=== PATIENT | female | born 1990 | race Caucasian/White ===

== ENCOUNTER 2017-09-22 15:05 | Inpatient (IN) | payer BC ==
[2017-09-22] MEDS ORDERED: Ondansetron 4 MG/2 ML SDV IVPUSH PRN (15:13)
[2017-09-22] MEDS ORDERED: Nalbuphine 20 MG/ML 1 ML Syringe IVPUSH PRN (15:13)
[2017-09-22] MEDS ORDERED: Sodium Chloride 0.9% 10 ML Syringe FLUSH PRN (15:13)
[2017-09-22] MEDS ORDERED: Oxytocin/Lactated Ringers 10 UNIT/1,000 ML BAG IV SCH (15:15)
--- NOTE | 2017-09-22 15:15 | PCM.LDHP ---
L&D History of Present Illness - General Date of Service: 09/22/17 Admit Problem/Dx: Patient Status Order with Admit Dx/Problem 09/22/17 15:13 Patient Status [ADT] Routine Admission Diagnosis/Problem Admission Diagnosis/Problem Premature rupture of membranes Source of Information: Patient History Limitations: Reports: No Limitations - History of Present Illness Introduction:: Patient is a 27 y/o at 39 6/7 wks who presents to L&D for management of PROM. States that around 0800 this AM had the start of fluid leaking. No real contractions. No other concerns. 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: : 1 Para: 0 LMP (Approximate): - Past Surgical History HEENT Surgical History: Reports: Oral Surgery ([place] tooth extraction) Social & Family History - Tobacco Use Smoking Status *Q: Never Smoker - Alcohol Use Alcohol Use History: No - Recreational Drug Use Recreational Drug Use: No H&P Review of Systems - Review of Systems: Review Of Systems: See Below General: Reports: No Symptoms Pulmonary: Reports: No Symptoms Cardiovascular: Reports: No Symptoms Gastrointestinal: Reports: No Symptoms Genitourinary: Reports: No Symptoms Musculoskeletal: Reports: No Symptoms Neurological: Reports: No Symptoms L&D Exam - Exam Exam: See Below - OB Specific Contraction Intensity: Irritability Movement: Active Heart Tones: Present Heart Tones per Min: 140 Heart Rate (FHR) Variability: Moderate (6-25 bmp) Presentation: Vertex - Exam General: Alert, Oriented, Cooperative Lungs: Clear to Auscultation, Normal Respiratory Effort Cardiovascular: Regular Rate, Regular Rhythm GI/Abdominal Exam: Soft, Non-Tender Genitourinary: Normal external exam Back Exam: Normal Inspection Extremities: Normal Inspection Skin: Warm, Dry, Intact - Patient Data Result Diagrams: 09/22/17 15:35 - Problem List (1) 39 weeks gestation of SNOMED Code(s): 36341784 ICD Code: Z3A.39 - 39 WEEKS GESTATION OF Status: Acute Current Visit: Yes (2) GBS (group B Streptococcus carrier), +RV culture, currently SNOMED Code(s): 9571777747512, 707970504, 5325950416132 ICD Code: O99.820 - STREPTOCOCCUS B CARRIER STATE COMPLICATING Status: Acute Current Visit: Yes (3) Premature rupture of membranes SNOMED Code(s): 69648964 ICD Code: O42.90 - NARCISA ROM, 7TH0 BETW RUPT & ONST LABR, UNSP WEEKS OF GEST Status: Acute Current Visit: Yes Qualifiers: PROM onset of labor timing: unspecified duration between rupture of membranes and onset of labor PROM gestational age: full term Qualified Code( s): O42.92 - Full-term premature rupture of membranes, unspecified as to length of time between rupture and onset of labor Problem List Initiated/Reviewed/Updated: Yes Orders Last 24hrs: Active Orders 24 hr Category Date Time Status Patient Status [ADT] Routine ADT 09/22/17 15:13 Ordered Activity as Tolerated [RC] PFP Care 09/22/17 15:13 Ordered Communication Order [RC] ASDIRECTED Care 09/22/17 15:13 Ordered Heart Tones [RC] ASDIRECTED Care 09/22/17 15:13 Ordered Non Stress Test [RC] PER UNIT ROUTINE Care 09/22/17 15:13 Ordered Notify Provider [RC] PFP Care 09/22/17 15:13 Ordered Notify Provider [RC] PRN Care 09/22/17 15:13 Ordered Peripheral IV Care [RC] . DIRECTED Care 09/22/17 15:13 Ordered Vital Signs [RC] PER UNIT ROUTINE Care 09/22/17 15:13 Ordered Regular Diet [DIET] Diet 09/22/17 Lunch Ordered CBC W/O DIFF,HEMOGRAM [HEME] Routine Lab 09/22/17 15:13 Ordered RAPID PLASMA REAGIN,RPR [CHEM] Routine Lab 09/22/17 15:13 Ordered TYPE AND SCREEN [BBK] Routine Lab 09/22/17 15:13 Ordered Ampicillin 1 gm Med 09/22/17 15:15 Ordered Sodium Chloride 0.9% [Normal Saline] 100 ml IV Q4H Ampicillin 2 gm Med 09/22/17 15:13 Ordered Sodium Chloride 0.9% [Normal Saline] 100 ml IV ONETIME Lactated Ringers [Ringers, Lactated] 1,000 ml Med 09/22/17 15:15 Ordered IV ASDIRECTED Nalbuphine [Nubain] Med 09/22/17 15:13 Ordered 10 mg IVPUSH Q2H PRN Ondansetron [Zofran] Med 09/22/17 15:13 Ordered 4 mg IVPUSH Q4H PRN Oxytocin/Lactated Ringers [Pitocin in LR 10 Units/1,000 Med 09/22/17 15:15 Ordered ML] 10 unit in 1,000 ml IV .CONTINUOUS Oxytocin/Lactated Ringers [Pitocin in LR 10 Units/1,000 Med 09/22/17 15:15 Ordered ML] 10 unit in 1,000 ml IV TITRATE Sodium Chloride 0.9% [Saline Flush] Med 09/22/17 15:13 Ordered 10 ml FLUSH ASDIRECTED PRN Electronic Heart Tones Ext w TOCO [WOMSER] Oth 09/22/17 15:13 Ordered Routine Electronic Heart Tones Internal [WOMSER] Per Unit Ot 09/22/17 15:13 Ordered Routine Peripheral IV Insertion Adult [OM.PC] Routine Oth 09/22/17 15:13 Ordered Resuscitation Status Routine Resus Stat 09/22/17 15:13 Ordered Medication Orders Ampicillin Sodium 2 gm/ Sodium (Chloride) 100 mls @ 200 mls/hr IV ONETIME ONE Stop: 09/22/17 15:42 Ampicillin Sodium 1 gm/ Sodium (Chloride) 100 mls @ 200 mls/hr IV Q4H SOLOMON Lactated Ringer's (Ringers, Lactated) 1,000 mls @ 100 mls/hr IV ASDIRECTED SOLOMON Oxytocin/Lactated Ringer's (Pitocin In Lr 10 Units/1,000 Ml) 10 unit in 1,000 mls @ 500 mls/hr IV .CONTINUOUS SOLOMON Nalbuphine HCl (Nubain) 10 mg IVPUSH Q2H PRN PRN Reason: pain Ondansetron HCl (Zofran) 4 mg IVPUSH Q4H PRN PRN Reason: Nausea/Vomiting Sodium Chloride (Saline Flush) 10 ml FLUSH ASDIRECTED PRN PRN Reason: Keep Vein Open Assessment/Plan Comment:: 27 y/o at 39 6/7 wks who presents with PROM * CBC, T&S, RPR * GBS positive, Ampicillin started for antibiotic prophylaxis * Pitocin to be started for augmentation as ruptured ~6 hours with no contractions * Pain management pre patient preference * Anticipate
[2017-09-22] MEDS ORDERED: Ampicillin 2 GM in Sodium Chloride 0.9% 100 ML IV ONE (15:30)
[2017-09-22] MEDS: Lactated Ringers 1,000 ML IV SCH ×3 (16:01→23:40)
[2017-09-22] MEDS: Oxytocin/Lactated Ringers 10 UNIT/1,000 ML BAG IV SCH (16:01)
[2017-09-22] MEDS: Ampicillin 1 GM in Sodium Chloride 0.9% 100 ML IV SCH ×2 (19:56→23:41)
[2017-09-22] MEDS ORDERED: fentaNYL 100 MCG/2 ML SDV ONE (22:22)
[2017-09-22] MEDS ORDERED: ePHEDrine 50 MG/ML SDV IVPUSH PRN (22:24)
[2017-09-22] MEDS ORDERED: fentaNYL 100 MCG/2 ML SDV EPIDUR PRN (22:24)
[2017-09-22] MEDS: Bupivacaine/fentaNYL/NS 100 ML Bag EPIDUR SCH (22:52)
--- NOTE | 2017-09-22 23:01 | PCM.PREANE ---
Preanesthetic Assessment - Anesthesia/Transfusion/Family Hx Anesthesia History: Prior Anesthesia Without Reaction Family History of Anesthesia Reaction: No Transfusion History: No Prior Transfusion(s) - Review of Systems General: No Symptoms Pulmonary: No Symptoms Cardiovascular: No Symptoms Gastrointestinal: No Symptoms Neurological: No Symptoms Other: Reports: None - Physical Assessment Pulse: 94 O2 Sat by Pulse Oximetry: 100 Respiratory Rate: 18 Blood Pressure: 140/85 Temperature: 36.3 C Vital Signs: Last Vital Signs Temp 36.4 C 09/22/17 15:13 Pulse 94 09/22/17 15:13 Resp 18 09/22/17 15:13 BP 140/85 09/22/17 15:13 Pulse Ox 100 09/22/17 15:13 Height: 1.65 m Weight: 76.204 kg ASA Class: 2 Mental Status: Alert & Oriented x3 Airway Class: Mallampati = 1 Dentition: Reports: Normal Dentition Thyro-Mental Finger Breadths: 3 Mouth Opening Finger Breadths: 3 ROM/Head Extension: Full Lungs: Clear to Auscultation, Normal Respiratory Effort Cardiovascular: Regular Rate, Regular Rhythm - Lab Values: Laboratory Last Values WBC 10.40 K/mm3 (3.98-10.04) H 09/22/17 15:35 RBC 4.27 M/mm3 (3.98-5.22) 09/22/17 15:35 Hgb 12.2 gm/L (11.2-15.7) 09/22/17 15:35 Hct 36.1 % (34.1-44.9) 09/22/17 15:35 MCV 84.5 fl (79.4-94.8) 09/22/17 15:35 MCH 28.6 pg (25.6-32.2) 09/22/17 15:35 MCHC 33.8 g/dl (32.2-35.5) 09/22/17 15:35 RDW Std Deviation 40.6 fL (36.4-46.3) 09/22/17 15:35 Plt Count 276 K/mm3 (182-369) 09/22/17 15:35 MPV 9.0 fl (9.4-12.3) L 09/22/17 15:35 Blood Type B POSITIVE 09/22/17 15:35 Gel Antibody Screen Negative 09/22/17 15:35 - Allergies Allergies/Adverse Reactions: Allergies Allergy/AdvReac Type Severity Reaction Status Date / Time No Known Allergies Allergy Verified 09/22/17 17:35 - Anesthesia Plan Pre-Op Medication Ordered: None - Acknowledgements Anesthesia Type Planned: Epidural Pt an Appropriate Candidate for the Planned Anesthesia: Yes Alternatives and Risks of Anesthesia Discussed w Pt/Guardian: Yes Pt/Guardian Understands and Agrees with Anesthesia Plan: Yes PreAnesthesia Questionnaire HEENT History: Reports: Other (See Below) Other HEENT History: Wears contact lenses Gastrointestinal History: Reports: GERD 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 OB/BYN History: Infertility, IVF - Past Surgical History HEENT Surgical History: Reports: Oral Surgery ([place] tooth extraction) - SUBSTANCE USE Smoking Status *Q: Never Smoker Recreational Drug Use History: No - HOME MEDS Home Medications: Home Meds Pnv No.122/Iron/Folic Acid [ Multi Tablet] 1 each PO DAILY 09/22/17 [ History] - CURRENT (IN HOUSE) MEDS Current Meds: Current Medications Ephedrine Sulfate (Ephedrine Sulfate) 5 mg IVPUSH ASDIRECTED PRN PRN Reason: HYPOTENTSION Fentanyl (Sublimaze) 100 mcg EPIDUR Q3H PRN PRN Reason: Pain Last Admin: 09/22/17 22:51 Dose: 100 mcg Fentanyl/Bupivacaine HCl (Fentanyl/Bupivacaine/Ns 2 Mcg-0.125% 100 Ml) 100 ml EPIDUR ASDIRECTED SOLOMON Last Admin: 09/22/17 22:52 Dose: 100 ml Ampicillin Sodium 1 gm/ Sodium (Chloride) 100 mls @ 200 mls/hr IV Q4H SOLOMON Last Admin: 09/22/17 19:56 Dose: 200 mls/hr Lactated Ringer's (Ringers, Lactated) 1,000 mls @ 100 mls/hr IV ASDIRECTED SOLOMON Last Admin: 09/22/17 16:01 Dose: 40 mls/hr Oxytocin/Lactated Ringer's (Pitocin In Lr 10 Units/1,000 Ml) 10 unit in 1,000 mls @ 500 mls/hr IV .CONTINUOUS SOLOMON Oxytocin/Lactated Ringer's (Pitocin In Lr 10 Units/1,000 Ml) 10 unit in 1,000 mls @ 12 mls/hr IV TITRATE SOLOMON; Protocol Last Titration: 09/22/17 18:35 Dose: 12 munits/min, 72 mls/hr Nalbuphine HCl (Nubain) 10 mg IVPUSH Q2H PRN PRN Reason: pain Ondansetron HCl (Zofran) 4 mg IVPUSH Q4H PRN PRN Reason: Nausea/Vomiting Sodium Chloride (Saline Flush) 10 ml FLUSH ASDIRECTED PRN PRN Reason: Keep Vein Open Discontinued Medications Fentanyl (Sublimaze) Confirm Administered Dose 100 mcg .ROUTE .STK-MED ONE Stop: 09/22/17 22:23 Ampicillin Sodium 2 gm/ Sodium (Chloride) 100 mls @ 200 mls/hr IV ONETIME ONE Stop: 09/22/17 15:59 Last Admin: 09/22/17 16:01 Dose: 200 mls/hr
[2017-09-23] MEDS ORDERED: Bupivacaine 0.25% 10 ML SDV ONE (01:00)
[2017-09-23] MEDS: Ampicillin 1 GM in Sodium Chloride 0.9% 100 ML IV SCH ×2 (03:51→07:53)
[2017-09-23] MEDS: Oxytocin/Lactated Ringers 10 UNIT/1,000 ML BAG IV SCH (06:35)
[2017-09-23] MEDS: Bupivacaine/fentaNYL/NS 100 ML Bag EPIDUR SCH (07:17)
--- NOTE | 2017-09-23 10:02 | PCM.PNLD ---
Labor Progress Note - VS & Meds Vital Signs: Last Vital Signs Temp 36.3 C 09/22/17 23:00 Pulse 94 09/22/17 23:00 Resp 18 09/22/17 23:00 BP 140/85 09/22/17 23:00 Pulse Ox 100 09/22/17 23:00 Active Medications: Current Medications Ephedrine Sulfate (Ephedrine Sulfate) 5 mg IVPUSH ASDIRECTED PRN PRN Reason: HYPOTENTSION Fentanyl (Sublimaze) 100 mcg EPIDUR Q3H PRN PRN Reason: Pain Last Admin: 09/22/17 22:51 Dose: 100 mcg Fentanyl/Bupivacaine HCl (Fentanyl/Bupivacaine/Ns 2 Mcg-0.125% 100 Ml) 100 ml EPIDUR ASDIRECTED SOLOMON Last Admin: 09/23/17 07:17 Dose: 100 ml Ampicillin Sodium 1 gm/ Sodium (Chloride) 100 mls @ 200 mls/hr IV Q4H SOLOMON Last Admin: 09/23/17 07:53 Dose: 200 mls/hr Lactated Ringer's (Ringers, Lactated) 1,000 mls @ 100 mls/hr IV ASDIRECTED SOLOMON Last Admin: 09/22/17 23:40 Dose: 40 mls/hr Oxytocin/Lactated Ringer's (Pitocin In Lr 10 Units/1,000 Ml) 10 unit in 1,000 mls @ 500 mls/hr IV .CONTINUOUS SOLOMON Oxytocin/Lactated Ringer's (Pitocin In Lr 10 Units/1,000 Ml) 10 unit in 1,000 mls @ 12 mls/hr IV TITRATE SOLOMON; Protocol Last Titration: 09/23/17 08:33 Dose: 12 munits/min, 72 mls/hr Nalbuphine HCl (Nubain) 10 mg IVPUSH Q2H PRN PRN Reason: pain Ondansetron HCl (Zofran) 4 mg IVPUSH Q4H PRN PRN Reason: Nausea/Vomiting Sodium Chloride (Saline Flush) 10 ml FLUSH ASDIRECTED PRN PRN Reason: Keep Vein Open Discontinued Medications Fentanyl (Sublimaze) Confirm Administered Dose 100 mcg .ROUTE .STK-MED ONE Stop: 09/22/17 22:23 Last Admin: 09/23/17 07:16 Dose: Not Given Ampicillin Sodium 2 gm/ Sodium (Chloride) 100 mls @ 200 mls/hr IV ONETIME ONE Stop: 09/22/17 15:59 Last Admin: 09/22/17 16:01 Dose: 200 mls/hr - Uterine Contractions Uterine Monitoring Mode: External [place] Contraction Intensity: Moderate to Strong - Monitoring Monitor Mode: External Ultrasound Heart Rate (FHR) Baseline: 145 Heart Rate (FHR) Variability: Moderate (6-25 bmp) Accelerations: Present, 15x15 Decelerations: None Strip Review: Category I - Vaginal Exam Dilation (cm): 9-10 Effacement (Percent): 100 Station: 1 Cervical Position: Anterior - Labor Progress (Free Text) Labor Progress: Doing well. Received her epidural around 2200 last night and was 2 cm at that time. At 0400 this am was 5 cm and at 0800 was 8-9. Currently 9-10. Will reassess in 1 hour
--- NOTE | 2017-09-23 11:04 | PCM.SN ---
- Free Text/Narrative Note: 1100 heart rate with increasing baseline. Now 180. Likely chorioamnionitis given ruptured ~27 hours. Will adjust Ampicillin to 2 grams and add in gentamicin. Pediatric team to be up dated Patience Morocho MD
[2017-09-23] MEDS ORDERED: Ampicillin 2 GM in Sodium Chloride 0.9% 100 ML IV SCH (11:15)
[2017-09-23] MEDS: Lactated Ringers 1,000 ML IV SCH ×2 (11:27→14:52)
[2017-09-23] MEDS ORDERED: Nalbuphine 20 MG/ML 1 ML Syringe IVPUSH PRN (14:43)
[2017-09-23] MEDS ORDERED: Citric Acid/Sodium Citrate Solution 30 ML Cup PO ONE (14:43)
[2017-09-23] MEDS ORDERED: Metoclopramide 10 MG/2 ML SDV IVPUSH ONE (14:43)
[2017-09-23] MEDS ORDERED: Sodium Chloride 0.9% 10 ML Syringe FLUSH PRN (14:43)
[2017-09-23] MEDS ORDERED: Bupivacaine 0.5% 30 ML SDV ONE (14:44)
[2017-09-23] MEDS ORDERED: Metoclopramide 10 MG/2 ML SDV ONE (14:44)
[2017-09-23] MEDS ORDERED: Citric Acid/Sodium Citrate Solution 30 ML Cup ONE (14:45)
[2017-09-23] MEDS ORDERED: Lactated Ringers 1,000 ML IV SCH (14:45)
--- NOTE | 2017-09-23 14:56 | PCM.SN ---
- Free Text/Narrative Note: Patient pushing for 3.5 hours in multiple positions with perceived good maternal effort. Consented for VAVD. station +2/5. Attempted vacuum over 2 contractions with minimal descent of head. Decision to proceed with . Dr. Degroot was present for attempt due to meconium and chorioamnionitis.
[2017-09-23] MEDS ORDERED: fentaNYL 100 MCG/2 ML SDV ONE (15:01)
[2017-09-23] MEDS ORDERED: ceFAZolin 1 GM Vial ONE (15:21)
[2017-09-23] MEDS ORDERED: Phenylephrine/Normal Saline 100 MCG/ML 10 ML Syringe ONE (15:37)
[2017-09-23] MEDS ORDERED: Oxytocin 10 Units/1 ML SDV ONE (15:51)
[2017-09-23] MEDS ORDERED: Meperidine PF 50 MG/ML Syringe IVPUSH PRN (16:07)
--- NOTE | 2017-09-23 16:07 | PCM.POSTAN ---
POST ANESTHESIA ASSESSMENT - MENTAL STATUS Mental Status: Alert, Oriented - VITAL SIGNS Pulse Rate: 119 SaO2: 99 Resp Rate: 18 Blood Pressure: 109/93 Temperature: 98.2 F - RESPIRATORY Respiratory Status: Respiratory Rate WNL, Airway Patent, O2 Saturation Stable - CARDIOVASCULAR CV Status: Elevated Pulse Rate - GASTROINTESTINAL GI Status: No Symptoms - PAIN Pain Score: 0 - POST OP HYDRATION Hydration Status: Adequate & Stable
[2017-09-23] MEDS ORDERED: diphenhydrAMINE 50 MG/ML SDV IVPUSH PRN ×2 (16:12→16:21)
--- NOTE | 2017-09-23 16:13 | PCM.OPNOTE ---
- General Post-Op/Procedure Note Date of Surgery/Procedure: 09/23/17 Operative Procedure(s): primary section Findings: Viable male weight 10 lbs. 6 oz. Apgars 8/9 at 1527. Normal uterus tubes and ovaries Pre Op Diagnosis: Failure to descend Post-Op Diagnosis: Same, cephalopelvic disproportion Anesthesia Technique: Epidural Primary Surgeon: Kat Lloyd Anesthesia Provider: Quiana Mckeon Reason Track Greaser Was Necessary: Retraction, decreasing operative time, patient safety Fluid Replacement, Intraop: 2,500 Output, Urine Amount: 350 EBL in mLs: 350 Complications: None Condition: Good Free Text/Narrative:: Intake & Output 09/23/17 09/23/17 09/23/17 06:59 14:59 22:59 Intake Total 2300 Output Total 2525 Balance -225 The patient was taken to the operating room where epidural anesthesia was dosed to surgical levels without difficulty. The patient was prepped and draped in the usual sterile fashion in the dorsal supine position with a leftward tilt. A Pfannenstiel skin incision was made with the scalpel and carried through to the underlying layer of fascia. The fascia was incised in the midline and extended laterally using Alan scissors. Malika clamps were used to elevate the superior aspect of the fascial incision, which was elevated, and the underlying rectus muscles were dissected off bluntly and using Alan scissors. Attention was then turned to the inferior aspect of the fascial incision, which in similar fashion was grasped with Malika clamps, elevated, and the underlying rectus muscles were dissected off bluntly and using the alan. The rectus muscles were dissected in the midline. The peritoneum was entered bluntly; this incision was extended superiorly and inferiorly with good visualization of the bladder. The bladder blade was inserted. The vesicouterine peritoneum was identified and entered sharply using Metzenbaum scissors. This incision was extended laterally and the bladder flap was created digitally. The bladder blade was reinserted. The lower uterine segment was incised in a transverse fashion using the scalpel and with digital traction. Clear fluid was noted. The infant was subsequently delivered by flexing the head to the incision. Vaccum utilized. Body and shoulders followed without significant difficulty. The cord was clamped and cut. The infant was subsequently handed to the awaiting lawn mower whose presence had been requested.. The placenta was delivered spontaneously intact with a three-vessel cord noted. The uterus was exteriorized and cleared of all clots and debris. The uterine incision was repaired in 2 layers using 0 monocryl. Hemostasis was visualized. Hemostasis was visualized bilaterally. The uterus was returned to the abdomen. The uterine incision was reexamined and it was noted to be hemostatic. The pelvis was copiously irrigated. The fascia was closed with 1 PDS suture, and the skin was closed with 3-0 monocryl. Sponge, lap, and instrument counts were correct x2. The patient was stable at the completion of the procedure and was subsequently transferred to the recovery room in stable condition.
[2017-09-23] MEDS ORDERED: Ketorolac 30 MG/ML SDV IVPUSH SCH ×2 (16:15→16:30)
[2017-09-23] MEDS ORDERED: ePHEDrine 50 MG/ML SDV IVPUSH PRN (16:21)
[2017-09-23] MEDS ORDERED: Naloxone 0.4 MG/ML SDV IVPUSH PRN (16:21)
[2017-09-23] MEDS ORDERED: Lanolin 100% Cream 7 GM Tube TOP PRN (16:21)
[2017-09-23] MEDS ORDERED: Bupivacaine 0.75% 30 ML SDV ONE (16:25)
[2017-09-23] MEDS ORDERED: Sodium Bicarbonate 8.4% 50 MEQ/50 ML SDV ONE (16:25)
[2017-09-23] MEDS ORDERED: Lidocaine 2% with EPINEPHrine 1:200,000 20 ML SDV ONE (16:25)
[2017-09-23] MEDS ORDERED: Ketorolac 30 MG/ML SDV IVPUSH ONE (16:26)
[2017-09-23] MEDS ORDERED: Dextrose 5%-Lactated Ringers 1,000 ML IV SCH (16:30)
[2017-09-23] MEDS: Acetaminophen/oxyCODONE 325-5 MG Tab PO PRN (19:14)
[2017-09-23] MEDS: Ketorolac 30 MG/ML SDV IVPUSH SCH (22:39)
[2017-09-24] MEDS: Acetaminophen/oxyCODONE 325-5 MG Tab PO PRN ×3 (02:31→21:26)
[2017-09-24] MEDS: Ketorolac 30 MG/ML SDV IVPUSH SCH ×2 (05:41→12:02)
--- NOTE | 2017-09-24 06:29 | PCM.PNPP ---
- General Info Date of Service: 09/24/17 Functional Status: Reports: Pain Controlled - Review of Systems General: Reports: No Symptoms HEENT: Reports: No Symptoms Pulmonary: Reports: No Symptoms Cardiovascular: Reports: No Symptoms Gastrointestinal: Reports: No Symptoms Genitourinary: Reports: No Symptoms Musculoskeletal: Reports: No Symptoms Skin: Reports: No Symptoms Neurological: Reports: No Symptoms Psychiatric: Reports: No Symptoms - General Info Date of Service: 09/24/17 - Patient Data Vital Signs - Most Recent: Last Vital Signs Temp 36.9 C 09/24/17 03:34 Pulse 105 H 09/24/17 03:34 Resp 15 09/24/17 03:58 BP 125/72 09/24/17 03:34 Pulse Ox 100 09/24/17 03:58 Weight - Most Recent: 76.204 kg I&O - Last 24 Hours: Intake & Output 09/23/17 09/23/17 09/24/17 14:59 22:59 06:59 Intake Total 2300 4180 1000 Output Total 2525 4300 2000 Balance -225 -120 -1000 Lab Results - Last 24 Hours: Laboratory Results - last 24 hr 09/22/17 Range/Units 15:35 RPR Non-reactive (NONREACTIVE) Med Orders - Current: Current Medications Diphenhydramine HCl (Benadryl) 25 mg IVPUSH Q6H PRN PRN Reason: Itching or Nausea Emollient Ointment (Lansinoh Hpa) 0 gm TOP ASDIRECTED PRN PRN Reason: Sore Nipples Ephedrine Sulfate (Ephedrine Sulfate) 5 mg IVPUSH SEECOMMENT PRN PRN Reason: Other Ketorolac Tromethamine (Toradol) 30 mg IVPUSH Q6H [facility] Stop: 09/24/17 10:31 Last Admin: 09/24/17 05:41 Dose: 30 mg Naloxone HCl (Narcan) 0.1 mg IVPUSH SEECOMMENT PRN PRN Reason: Respiratory Depression Oxycodone/Acetaminophen (Percocet 325-5 Mg) 2 tab PO Q6H PRN PRN Reason: Pain (moderate 4-6) Last Admin: 09/24/17 02:31 Dose: 2 tab Discontinued Medications Bupivacaine HCl (Marcaine 0.5%) Confirm Administered Dose 30 ml .ROUTE .STK-MED ONE Stop: 09/23/17 14:45 Last Admin: 09/23/17 15:21 Dose: 20 ml Bupivacaine HCl (Sensorcaine-Mpf 0.75%) Confirm Administered Dose 30 ml .ROUTE .STK-MED ONE Stop: 09/23/17 16:26 Cefazolin Sodium (Ancef) Confirm Administered Dose 2 gm .ROUTE .[facility] ONE Stop: 09/23/17 15:22 Citric Acid/Sodium Citrate (Bicitra Solution) Confirm Administered Dose 30 ml .ROUTE .[facility] ONE Stop: 09/23/17 14:46 Last Admin: 09/23/17 14:53 Dose: Not Given Citric Acid/Sodium Citrate (Bicitra Solution) 30 ml PO ONETIME ONE Stop: 09/23/17 14:44 Last Admin: 09/23/17 14:50 Dose: 30 ml Diphenhydramine HCl (Benadryl) 25 mg IVPUSH Q6H PRN PRN Reason: Pruritis Ephedrine Sulfate (Ephedrine Sulfate) 5 mg IVPUSH ASDIRECTED PRN PRN Reason: HYPOTENTSION Fentanyl (Sublimaze) Confirm Administered Dose 100 mcg .ROUTE .[facility] ONE Stop: 09/22/17 22:23 Last Admin: 09/23/17 07:16 Dose: Not Given Fentanyl (Sublimaze) 100 mcg EPIDUR Q3H PRN PRN Reason: Pain Last Admin: 09/22/17 22:51 Dose: 100 mcg Fentanyl (Sublimaze) Confirm Administered Dose 100 mcg .ROUTE .[facility] ONE Stop: 09/23/17 15:02 Fentanyl/Bupivacaine HCl (Fentanyl/Bupivacaine/Ns 2 Mcg-0.125% 100 Ml) 100 ml EPIDUR ASDIRECTED [facility] Last Admin: 09/23/17 07:17 Dose: 100 ml Ampicillin Sodium 2 gm/ Sodium (Chloride) 100 mls @ 200 mls/hr IV ONETIME ONE Stop: 09/22/17 15:59 Last Admin: 09/22/17 16:01 Dose: 200 mls/hr Ampicillin Sodium 1 gm/ Sodium (Chloride) 100 mls @ 200 mls/hr IV Q4H [facility] Last Admin: 09/23/17 07:53 Dose: 200 mls/hr Lactated Ringer's (Ringers, Lactated) 1,000 mls @ 100 mls/hr IV ASDIRECTED [facility] Last Admin: 09/23/17 14:52 Dose: 40 mls/hr Oxytocin/Lactated Ringer's (Pitocin In Lr 10 Units/1,000 Ml) 10 unit in 1,000 mls @ 500 mls/hr IV .CONTINUOUS [facility] Oxytocin/Lactated Ringer's (Pitocin In Lr 10 Units/1,000 Ml) 10 unit in 1,000 mls @ 12 mls/hr IV TITRATE [facility]; Protocol Last Titration: 09/23/17 14:36 Dose: 0 munits/min, 0 mls/hr Ampicillin Sodium 2 gm/ Sodium (Chloride) 100 mls @ 200 mls/hr IV Q6H [facility] Last Admin: 09/23/17 12:03 Dose: 200 mls/hr Gentamicin Sulfate 380 mg/ (Sodium Chloride) 109.5 mls @ 200 mls/hr IV ONETIME ONE Stop: 09/23/17 11:31 Last Admin: 09/23/17 11:31 Dose: 200 mls/hr Lactated Ringer's (Ringers, Lactated) 1,000 mls @ 125 mls/hr IV ASDIRECTED [facility] Last Admin: 09/23/17 16:41 Dose: 125 mls/hr Dextrose/Lactated Ringer's (Dextrose 5%-Lactated Ringers) 1,000 mls @ 125 mls/ hr IV ASDIRECTED [facility] Stop: 09/24/17 00:29 Ketorolac Tromethamine (Toradol) 30 mg IVPUSH ONETIME [facility] Ketorolac Tromethamine (Toradol) 30 mg IVPUSH Q6H [facility] Stop: 09/24/17 04:31 Ketorolac Tromethamine (Toradol) 30 mg IVPUSH ONETIME ONE Stop: 09/23/17 16:27 Last Admin: 09/23/17 16:30 Dose: 30 mg Lidocaine/Epinephrine (Xylocaine-Mpf 2%-Epi 1:200,000) Confirm Administered Dose 20 ml .ROUTE .STK-MED ONE Stop: 09/23/17 16:26 Meperidine HCl (Demerol) 12.5 mg IVPUSH ONETIME PRN PRN Reason: Shivering Metoclopramide HCl (Reglan) Confirm Administered Dose 10 mg .ROUTE .STK-MED ONE Stop: 09/23/17 14:45 Last Admin: 09/23/17 14:53 Dose: Not Given Metoclopramide HCl (Reglan) 10 mg IVPUSH ONETIME ONE Stop: 09/23/17 14:44 Last Admin: 09/23/17 14:53 Dose: 10 mg Nalbuphine HCl (Nubain) 10 mg IVPUSH Q2H PRN PRN Reason: pain Nalbuphine HCl (Nubain) 10 mg IVPUSH Q2H PRN PRN Reason: pain Ondansetron HCl (Zofran) 4 mg IVPUSH Q4H PRN PRN Reason: Nausea/Vomiting Oxytocin (Pitocin) Confirm Administered Dose 10 unit .ROUTE .STK-MED ONE Stop: 09/23/17 15:52 Phenylephrine HCl (Phenylephrine In Ns 100 Mcg/Ml) Confirm Administered Dose 1 mg .ROUTE .STK-MED ONE Stop: 09/23/17 15:38 Sodium Bicarbonate (Sodium Bicarbonate 8.4%) Confirm Administered Dose 50 meq .ROUTE .STK-MED ONE Stop: 09/23/17 16:26 Sodium Chloride (Saline Flush) 10 ml FLUSH ASDIRECTED PRN PRN Reason: Keep Vein Open Sodium Chloride (Saline Flush) 10 ml FLUSH ASDIRECTED PRN PRN Reason: Keep Vein Open - Interaction Support Person: - Recovery Exam Fundal Tone: Firm Fundal Level: 1 Fingerbreadths Below Umbilicus Fundal Placement: Midline Lochia Amount: Scant, Small Lochia Color: Rubra/Red Perineum Description: Edematous Episiotomy/Laceration: None Bladder Status: Nonpalpable Urinary Elimination: Indwelling Catheter - Exam General: Alert, Oriented HEENT: Pupils Equal Neck: Supple Lungs: Clear to Auscultation, Normal Respiratory Effort Cardiovascular: Regular Rate, Regular Rhythm GI/Abdominal Exam: Normal Bowel Sounds, Soft, Non-Tender, No Organomegaly, No Distention, No Abnormal Bruit, No Mass, Pelvis Stable Extremities: Normal Inspection, Normal Range of Motion, Non-Tender, No Pedal Edema, Normal Capillary Refill Skin: Warm, Dry, Intact Wound/Incisions: Healing Well Neurological: No New Focal Deficit Psy/Mental Status: Alert, Normal Affect, Normal Mood - Problem List Review Problem List Initiated/Reviewed/Updated: Yes - My Orders Last 24 Hours: My Active Orders 09/23/17 14:43 Heart Tones [RC] PER UNIT ROUTINE Vital Signs [RC] PFP 09/23/17 14:44 Peripheral IV Care [RC] . DIRECTED 09/23/17 16:21 Communication Order [RC] PER UNIT ROUTINE Communication Order [RC] PER UNIT ROUTINE Notify Provider Intake and Out [RC] ASDIRECTED Vital Signs [RC] Q1HR Acetaminophen/oxyCODONE [Percocet 325-5 MG] 2 tab PO Q6H PRN Lanolin [Lansinoh HPA] See Dose Instructions TOP ASDIRECTED PRN Naloxone [Narcan] 0.1 mg IVPUSH SEECOMMENT PRN diphenhydrAMINE [Benadryl] 25 mg IVPUSH Q6H PRN ePHEDrine [ePHEDrine Sulfate] 5 mg IVPUSH SEECOMMENT PRN Assess Lochia [WOMSER] Per Unit Routine Assess Uterine Involution [WOMSER] Per Unit Routine Medication Administration Instruction [OM.PC] Routine 09/23/17 22:30 Ketorolac [Toradol] 30 mg IVPUSH Q6H 09/23/17 Dinner Regular Diet [DIET] 09/24/17 05:40 CBC WITH AUTO DIFF [HEME] AM 09/24/17 16:18 Urinary Catheter Removal [RC] Per Unit Routine - Assessment Assessment:: POD1 Doing well Red will come out this morning. NO complaints. Afebrile. Can discontinue antibiotics at the 24 hour post surgery time. - Plan Plan:: *
--- NOTE | 2017-09-24 08:20 | PCM48HPAN ---
Post Anesthesia Note - EVALUATION WITHIN 48HRS OF ANESTHETIC Vital Signs in Normal Range: Yes Patient Participated in Evaluation: Yes Respiratory Function Stable: Yes Airway Patent: Yes Cardiovascular Function Stable: Yes Hydration Status Stable: Yes Pain Control Satisfactory: Yes Nausea and Vomiting Control Satisfactory: Yes Mental Status Recovered: Yes Pulse Rate: 105 Resp Rate: 15 Temperature: 98.4 F Blood Pressure: 125/72 - COMMENTS/OBSERVATIONS Free Text/Narrative:: Patient on her postoperative day 1. Patient has stated understanding about possible backaches following epidural / spinal anesthesia. Patient denies any headache, lightheadedness or backache at this time. Rates her postoperative pain as 2-3/10. Ambulating, Red catheter has not been discontinued yet.
[2017-09-24] MEDS: Ibuprofen 600 MG Tab PO PRN (22:29)
[2017-09-25] MEDS: Acetaminophen/oxyCODONE 325-5 MG Tab PO PRN ×3 (06:32→19:04)
--- NOTE | 2017-09-25 08:44 | PCM.PNPP ---
- General Info Date of Service: 09/25/17 Subjective Update: Doing well. Pumping q2-3 and nursing. Baby still getting IV. Pain controlled. Minimal bleeding. Functional Status: Reports: Pain Controlled - Review of Systems General: Reports: No Symptoms HEENT: Reports: No Symptoms Pulmonary: Reports: No Symptoms Cardiovascular: Reports: No Symptoms Gastrointestinal: Reports: No Symptoms Genitourinary: Reports: No Symptoms Musculoskeletal: Reports: No Symptoms Skin: Reports: No Symptoms Neurological: Reports: No Symptoms Psychiatric: Reports: No Symptoms - General Info Date of Service: 09/25/17 - Patient Data Vital Signs - Most Recent: Last Vital Signs Temp 36.4 C 09/25/17 03:20 Pulse 76 09/25/17 03:20 Resp 14 09/25/17 03:20 BP 117/87 09/25/17 03:20 Pulse Ox 98 09/25/17 03:20 Weight - Most Recent: 76.204 kg I&O - Last 24 Hours: Intake & Output 09/24/17 09/25/17 09/25/17 22:59 06:59 14:59 Intake Total 0 Output Total 500 Balance -500 Med Orders - Current: Current Medications Diphenhydramine HCl (Benadryl) 25 mg IVPUSH Q6H PRN PRN Reason: Itching or Nausea Emollient Ointment (Lansinoh Hpa) 0 gm TOP ASDIRECTED PRN PRN Reason: Sore Nipples Ephedrine Sulfate (Ephedrine Sulfate) 5 mg IVPUSH SEECOMMENT PRN PRN Reason: Other Ibuprofen (Motrin) 600 mg PO Q4HR PRN PRN Reason: Pain Last Admin: 09/24/17 22:29 Dose: 600 mg Naloxone HCl (Narcan) 0.1 mg IVPUSH SEECOMMENT PRN PRN Reason: Respiratory Depression Oxycodone/Acetaminophen (Percocet 325-5 Mg) 2 tab PO Q6H PRN PRN Reason: Pain (moderate 4-6) Last Admin: 09/25/17 06:32 Dose: 2 tab Discontinued Medications Bupivacaine HCl (Marcaine 0.5%) Confirm Administered Dose 30 ml .ROUTE .STK-MED ONE Stop: 09/23/17 14:45 Last Admin: 09/23/17 15:21 Dose: 20 ml Bupivacaine HCl (Sensorcaine-Mpf 0.75%) Confirm Administered Dose 30 ml .ROUTE .STK-MED ONE Stop: 09/23/17 16:26 Bupivacaine HCl (Sensorcaine-Mpf 0.25%) 10 ml .ROUTE .STK-MED ONE Stop: 09/23/17 01:01 Cefazolin Sodium (Ancef) Confirm Administered Dose 2 gm .ROUTE .STK-MED ONE Stop: 09/23/17 15:22 Citric Acid/Sodium Citrate (Bicitra Solution) Confirm Administered Dose 30 ml .ROUTE .STK-MED ONE Stop: 09/23/17 14:46 Last Admin: 09/23/17 14:53 Dose: Not Given Citric Acid/Sodium Citrate (Bicitra Solution) 30 ml PO ONETIME ONE Stop: 09/23/17 14:44 Last Admin: 09/23/17 14:50 Dose: 30 ml Diphenhydramine HCl (Benadryl) 25 mg IVPUSH Q6H PRN PRN Reason: Pruritis Ephedrine Sulfate (Ephedrine Sulfate) 5 mg IVPUSH ASDIRECTED PRN PRN Reason: HYPOTENTSION Fentanyl (Sublimaze) Confirm Administered Dose 100 mcg .ROUTE .STK-MED ONE Stop: 09/22/17 22:23 Last Admin: 09/23/17 07:16 Dose: Not Given Fentanyl (Sublimaze) 100 mcg EPIDUR Q3H PRN PRN Reason: Pain Last Admin: 09/22/17 22:51 Dose: 100 mcg Fentanyl (Sublimaze) Confirm Administered Dose 100 mcg .ROUTE .STK-MED ONE Stop: 09/23/17 15:02 Last Admin: 09/24/17 16:52 Dose: Not Given Fentanyl/Bupivacaine HCl (Fentanyl/Bupivacaine/Ns 2 Mcg-0.125% 100 Ml) 100 ml EPIDUR ASDIRECTED [facility] Last Admin: 09/23/17 07:17 Dose: 100 ml Ampicillin Sodium 2 gm/ Sodium (Chloride) 100 mls @ 200 mls/hr IV ONETIME ONE Stop: 09/22/17 15:59 Last Admin: 09/22/17 16:01 Dose: 200 mls/hr Ampicillin Sodium 1 gm/ Sodium (Chloride) 100 mls @ 200 mls/hr IV Q4H [facility] Last Admin: 09/23/17 07:53 Dose: 200 mls/hr Lactated Ringer's (Ringers, Lactated) 1,000 mls @ 100 mls/hr IV ASDIRECTED [facility] Last Admin: 09/23/17 14:52 Dose: 40 mls/hr Oxytocin/Lactated Ringer's (Pitocin In Lr 10 Units/1,000 Ml) 10 unit in 1,000 mls @ 500 mls/hr IV .CONTINUOUS [facility] Oxytocin/Lactated Ringer's (Pitocin In Lr 10 Units/1,000 Ml) 10 unit in 1,000 mls @ 12 mls/hr IV TITRATE [facility]; Protocol Last Titration: 09/23/17 14:36 Dose: 0 munits/min, 0 mls/hr Ampicillin Sodium 2 gm/ Sodium (Chloride) 100 mls @ 200 mls/hr IV Q6H [facility] Last Admin: 09/23/17 12:03 Dose: 200 mls/hr Gentamicin Sulfate 380 mg/ (Sodium Chloride) 109.5 mls @ 200 mls/hr IV ONETIME ONE Stop: 09/23/17 11:31 Last Admin: 09/23/17 11:31 Dose: 200 mls/hr Lactated Ringer's (Ringers, Lactated) 1,000 mls @ 125 mls/hr IV ASDIRECTED [facility] Last Admin: 09/23/17 16:41 Dose: 125 mls/hr Dextrose/Lactated Ringer's (Dextrose 5%-Lactated Ringers) 1,000 mls @ 125 mls/ hr IV ASDIRECTED [facility] Stop: 09/24/17 00:29 Last Admin: 09/24/17 14:34 Dose: Not Given Ketorolac Tromethamine (Toradol) 30 mg IVPUSH ONETIME [facility] Ketorolac Tromethamine (Toradol) 30 mg IVPUSH Q6H [facility] Stop: 09/24/17 04:31 Last Admin: 09/24/17 16:53 Dose: Not Given Ketorolac Tromethamine (Toradol) 30 mg IVPUSH ONETIME ONE Stop: 09/23/17 16:27 Last Admin: 09/23/17 16:30 Dose: 30 mg Ketorolac Tromethamine (Toradol) 30 mg IVPUSH Q6H [facility] Stop: 09/24/17 10:31 Last Admin: 09/24/17 12:02 Dose: 30 mg Lidocaine/Epinephrine (Xylocaine-Mpf 2%-Epi 1:200,000) Confirm Administered Dose 20 ml .ROUTE .STK-MED ONE Stop: 09/23/17 16:26 Meperidine HCl (Demerol) 12.5 mg IVPUSH ONETIME PRN PRN Reason: Shivering Metoclopramide HCl (Reglan) Confirm Administered Dose 10 mg .ROUTE .STK-MED ONE Stop: 09/23/17 14:45 Last Admin: 09/23/17 14:53 Dose: Not Given Metoclopramide HCl (Reglan) 10 mg IVPUSH ONETIME ONE Stop: 09/23/17 14:44 Last Admin: 09/23/17 14:53 Dose: 10 mg Nalbuphine HCl (Nubain) 10 mg IVPUSH Q2H PRN PRN Reason: pain Nalbuphine HCl (Nubain) 10 mg IVPUSH Q2H PRN PRN Reason: pain Ondansetron HCl (Zofran) 4 mg IVPUSH Q4H PRN PRN Reason: Nausea/Vomiting Oxytocin (Pitocin) Confirm Administered Dose 10 unit .ROUTE .STK-MED ONE Stop: 09/23/17 15:52 Phenylephrine HCl (Phenylephrine In Ns 100 Mcg/Ml) Confirm Administered Dose 1 mg .ROUTE .STK-MED ONE Stop: 09/23/17 15:38 Sodium Bicarbonate (Sodium Bicarbonate 8.4%) Confirm Administered Dose 50 meq .ROUTE .STK-MED ONE Stop: 09/23/17 16:26 Sodium Chloride (Saline Flush) 10 ml FLUSH ASDIRECTED PRN PRN Reason: Keep Vein Open Sodium Chloride (Saline Flush) 10 ml FLUSH ASDIRECTED PRN PRN Reason: Keep Vein Open - Infant Interaction Disposition, : at Bedside Interaction: Holding Infant Feeding: Breastfed ; Nursed Well Support Person: - Recovery Exam Fundal Tone: Firm Fundal Level: At Umbilicus Fundal Placement: Midline Lochia Amount: Small Lochia Color: Rubra/Red Perineum Description: Intact, Minimal Bruising/Swelling Episiotomy/Laceration: None Bladder Status: Nonpalpable Urinary Elimination: Voided - Exam General: Alert, Oriented HEENT: Pupils Equal Neck: Supple Lungs: Clear to Auscultation, Normal Respiratory Effort Cardiovascular: Regular Rate, Regular Rhythm GI/Abdominal Exam: Normal Bowel Sounds, Soft, Non-Tender, No Organomegaly, No Distention, No Abnormal Bruit, No Mass, Pelvis Stable Extremities: Normal Inspection, Normal Range of Motion, Non-Tender, No Pedal Edema, Normal Capillary Refill Skin: Warm, Dry, Intact Wound/Incisions: Healing Well Neurological: No New Focal Deficit Psy/Mental Status: Alert, Normal Affect, Normal Mood - Problem List Review Problem List Initiated/Reviewed/Updated: Yes - My Orders Last 24 Hours: My Active Orders 09/24/17 21:43 Ibuprofen [Motrin] 600 mg PO Q4HR PRN - Assessment Assessment:: POD2 Doing well Red will come out this morning. NO complaints. Afebrile. Can discontinue antibiotics at the 24 hour post surgery time. - Plan Plan:: *
[2017-09-25] MEDS: Ibuprofen 600 MG Tab PO PRN (22:25)
[2017-09-26] MEDS: Acetaminophen/oxyCODONE 325-5 MG Tab PO PRN (01:44)
--- NOTE | 2017-09-26 06:20 | PCM.DCSUM1 ---
Discharge Summary - Hospital Course Brief History: Admitted with PROM. Augmented with pitocin. Progressed to complete. Chorioamnionitis with pushing. Failure to descend and 1LTCS for CPD. Diagnosis: Stroke: No - Discharge Data Discharge Date: 09/26/17 Discharge Disposition: Home, Self-Care 01 Condition: Good - Patient Summary/Data Operative Procedure(s) Performed: primary section - Patient Instructions Diet: Usual Diet as Tolerated Activity: No Strenuous Activities Activity, Other: pelvic rest Driving: Do Not Drive Showering/Bathing: May Shower Wound/Incision Care: Keep Operative Site/Wound Site Clean and Dry, Change Dressing Daily, Do NOT Change Dressing Notify Provider of: Fever, Increased Pain, Swelling and Redness, Drainage, Nausea and/or Vomiting - Discharge Plan *PRESCRIPTION DRUG MONITORING PROGRAM REVIEWED*: No *COPY OF PRESCRIPTION DRUG MONITORING REPORT IN PATIENT BLAIR: No Home Medications: Home Meds Pnv No.122/Iron/Folic Acid [ Multi Tablet] 1 each PO DAILY 09/22/17 [ History] - Discharge Summary/Plan Comment DC Time >30 min.: No - General Info Date of Service: 09/26/17 Functional Status: Reports: Pain Controlled - Review of Systems General: Reports: No Symptoms HEENT: Reports: No Symptoms Pulmonary: Reports: No Symptoms Cardiovascular: Reports: No Symptoms Gastrointestinal: Reports: No Symptoms Genitourinary: Reports: No Symptoms Musculoskeletal: Reports: No Symptoms Skin: Reports: No Symptoms Neurological: Reports: No Symptoms Psychiatric: Reports: No Symptoms - Patient Data Vitals - Most Recent: Last Vital Signs Temp 36.9 C 09/26/17 03:14 Pulse 81 09/26/17 03:14 Resp 14 09/26/17 03:14 BP 118/87 09/26/17 03:14 Pulse Ox 97 09/26/17 03:14 Weight - Most Recent: 76.204 kg I&O - Last 24 hours: Intake & Output 09/25/17 09/25/17 09/26/17 14:59 22:59 06:59 Intake Total 180 Balance 180 Med Orders - Current: Current Medications Diphenhydramine HCl (Benadryl) 25 mg IVPUSH Q6H PRN PRN Reason: Itching or Nausea Emollient Ointment (Lansinoh Hpa) 0 gm TOP ASDIRECTED PRN PRN Reason: Sore Nipples Ephedrine Sulfate (Ephedrine Sulfate) 5 mg IVPUSH SEECOMMENT PRN PRN Reason: Other Ibuprofen (Motrin) 600 mg PO Q4HR PRN PRN Reason: Pain Last Admin: 09/25/17 22:25 Dose: 600 mg Naloxone HCl (Narcan) 0.1 mg IVPUSH SEECOMMENT PRN PRN Reason: Respiratory Depression Oxycodone/Acetaminophen (Percocet 325-5 Mg) 2 tab PO Q6H PRN PRN Reason: Pain (moderate 4-6) Last Admin: 09/26/17 01:44 Dose: 2 tab Discontinued Medications Bupivacaine HCl (Marcaine 0.5%) Confirm Administered Dose 30 ml .ROUTE .STK-MED ONE Stop: 09/23/17 14:45 Last Admin: 09/23/17 15:21 Dose: 20 ml Bupivacaine HCl (Sensorcaine-Mpf 0.75%) Confirm Administered Dose 30 ml .ROUTE .STK-MED ONE Stop: 09/23/17 16:26 Bupivacaine HCl (Sensorcaine-Mpf 0.25%) 10 ml .ROUTE .STK-MED ONE Stop: 09/23/17 01:01 Cefazolin Sodium (Ancef) Confirm Administered Dose 2 gm .ROUTE .STK-MED ONE Stop: 09/23/17 15:22 Citric Acid/Sodium Citrate (Bicitra Solution) Confirm Administered Dose 30 ml .ROUTE .STK-MED ONE Stop: 09/23/17 14:46 Last Admin: 09/23/17 14:53 Dose: Not Given Citric Acid/Sodium Citrate (Bicitra Solution) 30 ml PO ONETIME ONE Stop: 09/23/17 14:44 Last Admin: 09/23/17 14:50 Dose: 30 ml Diphenhydramine HCl (Benadryl) 25 mg IVPUSH Q6H PRN PRN Reason: Pruritis Ephedrine Sulfate (Ephedrine Sulfate) 5 mg IVPUSH ASDIRECTED PRN PRN Reason: HYPOTENTSION Fentanyl (Sublimaze) Confirm Administered Dose 100 mcg .ROUTE .STK-MED ONE Stop: 09/22/17 22:23 Last Admin: 09/23/17 07:16 Dose: Not Given Fentanyl (Sublimaze) 100 mcg EPIDUR Q3H PRN PRN Reason: Pain Last Admin: 09/22/17 22:51 Dose: 100 mcg Fentanyl (Sublimaze) Confirm Administered Dose 100 mcg .ROUTE .STK-MED ONE Stop: 09/23/17 15:02 Last Admin: 09/24/17 16:52 Dose: Not Given Fentanyl/Bupivacaine HCl (Fentanyl/Bupivacaine/Ns 2 Mcg-0.125% 100 Ml) 100 ml EPIDUR ASDIRECTED [facility] Last Admin: 09/23/17 07:17 Dose: 100 ml Ampicillin Sodium 2 gm/ Sodium (Chloride) 100 mls @ 200 mls/hr IV ONETIME ONE Stop: 09/22/17 15:59 Last Admin: 09/22/17 16:01 Dose: 200 mls/hr Ampicillin Sodium 1 gm/ Sodium (Chloride) 100 mls @ 200 mls/hr IV Q4H [facility] Last Admin: 09/23/17 07:53 Dose: 200 mls/hr Lactated Ringer's (Ringers, Lactated) 1,000 mls @ 100 mls/hr IV ASDIRECTED [facility] Last Admin: 09/23/17 14:52 Dose: 40 mls/hr Oxytocin/Lactated Ringer's (Pitocin In Lr 10 Units/1,000 Ml) 10 unit in 1,000 mls @ 500 mls/hr IV .CONTINUOUS [facility] Oxytocin/Lactated Ringer's (Pitocin In Lr 10 Units/1,000 Ml) 10 unit in 1,000 mls @ 12 mls/hr IV TITRATE [facility]; Protocol Last Titration: 09/23/17 14:36 Dose: 0 munits/min, 0 mls/hr Ampicillin Sodium 2 gm/ Sodium (Chloride) 100 mls @ 200 mls/hr IV Q6H [facility] Last Admin: 09/23/17 12:03 Dose: 200 mls/hr Gentamicin Sulfate 380 mg/ (Sodium Chloride) 109.5 mls @ 200 mls/hr IV ONETIME ONE Stop: 09/23/17 11:31 Last Admin: 09/23/17 11:31 Dose: 200 mls/hr Lactated Ringer's (Ringers, Lactated) 1,000 mls @ 125 mls/hr IV ASDIRECTED [facility] Last Admin: 09/23/17 16:41 Dose: 125 mls/hr Dextrose/Lactated Ringer's (Dextrose 5%-Lactated Ringers) 1,000 mls @ 125 mls/ hr IV ASDIRECTED [facility] Stop: 09/24/17 00:29 Last Admin: 09/24/17 14:34 Dose: Not Given Ketorolac Tromethamine (Toradol) 30 mg IVPUSH ONETIME [facility] Ketorolac Tromethamine (Toradol) 30 mg IVPUSH Q6H [facility] Stop: 09/24/17 04:31 Last Admin: 09/24/17 16:53 Dose: Not Given Ketorolac Tromethamine (Toradol) 30 mg IVPUSH ONETIME ONE Stop: 09/23/17 16:27 Last Admin: 09/23/17 16:30 Dose: 30 mg Ketorolac Tromethamine (Toradol) 30 mg IVPUSH Q6H [facility] Stop: 09/24/17 10:31 Last Admin: 09/24/17 12:02 Dose: 30 mg Lidocaine/Epinephrine (Xylocaine-Mpf 2%-Epi 1:200,000) Confirm Administered Dose 20 ml .ROUTE .STK-MED ONE Stop: 09/23/17 16:26 Meperidine HCl (Demerol) 12.5 mg IVPUSH ONETIME PRN PRN Reason: Shivering Metoclopramide HCl (Reglan) Confirm Administered Dose 10 mg .ROUTE .STK-MED ONE Stop: 09/23/17 14:45 Last Admin: 09/23/17 14:53 Dose: Not Given Metoclopramide HCl (Reglan) 10 mg IVPUSH ONETIME ONE Stop: 09/23/17 14:44 Last Admin: 09/23/17 14:53 Dose: 10 mg Nalbuphine HCl (Nubain) 10 mg IVPUSH Q2H PRN PRN Reason: pain Nalbuphine HCl (Nubain) 10 mg IVPUSH Q2H PRN PRN Reason: pain Ondansetron HCl (Zofran) 4 mg IVPUSH Q4H PRN PRN Reason: Nausea/Vomiting Oxytocin (Pitocin) Confirm Administered Dose 10 unit .ROUTE .STK-MED ONE Stop: 09/23/17 15:52 Phenylephrine HCl (Phenylephrine In Ns 100 Mcg/Ml) Confirm Administered Dose 1 mg .ROUTE .STK-MED ONE Stop: 09/23/17 15:38 Sodium Bicarbonate (Sodium Bicarbonate 8.4%) Confirm Administered Dose 50 meq .ROUTE .STK-MED ONE Stop: 09/23/17 16:26 Sodium Chloride (Saline Flush) 10 ml FLUSH ASDIRECTED PRN PRN Reason: Keep Vein Open Sodium Chloride (Saline Flush) 10 ml FLUSH ASDIRECTED PRN PRN Reason: Keep Vein Open - Exam General: Reports: Alert, Oriented HEENT: Reports: Pupils Equal, Pupils Reactive, EOMI, Mucous Membr. Moist/[place] Neck: Reports: Supple Lungs: Reports: Clear to Auscultation, Normal Respiratory Effort Cardiovascular: Reports: Regular Rate, Regular Rhythm GI/Abdominal Exam: Normal Bowel Sounds, Soft, Non-Tender, No Organomegaly, No Distention, No Abnormal Bruit, No Mass, Pelvis Stable Rectal (Female) Exam: Normal Exam Back Exam: Reports: Normal Inspection, Full Range of Motion Extremities: Normal Inspection, Normal Range of Motion, Non-Tender, No Pedal Edema, Normal Capillary Refill Skin: Reports: Warm, Dry, Intact Wound/Incisions: Reports: Healing Well Neurological: Reports: No New Focal Deficit Psy/Mental Status: Reports: Alert, Normal Affect, Normal Mood
== END 2017-09-26 15:05 | disposition home or self-care (01) | DRG 540 ==
LOC: JD.OBCHECK 15:05 → JD.OB 15:08 → JD.OBCHECK 15:13 → OBSVTOIN 09-23 15:27 → JD.OB 09-23 15:28
PROVIDERS: ADMIT Obstetrics & Gynecology; ATTEND Obstetrics & Gynecology
PROC: 00HU33Z Insertion of Infusion Device into Spinal Canal, Percutaneous Approach (ICD-10-PCS; 2017-09-22)
PROC: 3E0R3BZ Introduction of Anesthetic Agent into Spinal Canal, Percutaneous Approach (ICD-10-PCS; 2017-09-22)
PROC: 10D00Z1 Extraction of Products of Conception, Low, Open Approach (ICD-10-PCS; principal; 2017-09-23)
DX: O99.824 Streptococcus B carrier state complicating childbirth (principal); O41.1230 Chorioamnionitis, third trimester, not applicable or unspecified; O33.9 Maternal care for disproportion, unspecified; Z37.0 Single live birth; Z3A.39 39 weeks gestation of pregnancy; O77.0 Labor and delivery complicated by meconium in amniotic fluid; O42.12 Full-term premature rupture of membranes, onset of labor more than 24 hours following rupture
CPT/HCPCS: 36415; 51701; 51702; 59025; 85025; 85027; 86592; 86850; 86900; 86901; A9270-GY; J0290; J0690; J1580; J1885; J2370; J2590; J2765; J3010; J3490; J7030; J7120